=== PATIENT | female | born 1975 | race Caucasian/White ===

== ENCOUNTER → 2023-07-16 13:45 | Outpatient (REF) | payer OTHER, SELFPAY | LOC: WDC 13:45 | PROVIDERS: ATTENDING PHYSICIAN Obstetrics & Gynecology Gynecology; FAMILY PHYSICIAN Physician Assistant Medical | DX: R92.2 Inconclusive mammogram (principal) | CPT/HCPCS: 76641 ==

== ENCOUNTER → 2023-10-07 12:37 | Outpatient (REF) | payer OTHER, SELFPAY | LOC: WDC 12:37 | PROVIDERS: ATTENDING PHYSICIAN Obstetrics & Gynecology Gynecology; FAMILY PHYSICIAN Physician Assistant Medical | DX: Z12.31 Encounter for screening mammogram for malignant neoplasm of breast (principal) | CPT/HCPCS: 77063; 77067 ==

== ENCOUNTER → 2024-01-10 13:57 | Outpatient (REF) | payer OTHER, SELFPAY | LOC: WDC 13:57 | PROVIDERS: ATTENDING PHYSICIAN Obstetrics & Gynecology Gynecology | DX: R92.8 Other abnormal and inconclusive findings on diagnostic imaging of breast (principal) | CPT/HCPCS: 76642 ==

== ENCOUNTER → 2024-07-10 09:55 | Outpatient (REF) | payer OTHER, SELFPAY | LOC: WDC 09:55 | PROVIDERS: ATTENDING PHYSICIAN Obstetrics & Gynecology Gynecology; FAMILY PHYSICIAN Nurse Practitioner Family | DX: R92.2 Inconclusive mammogram (principal) | CPT/HCPCS: 76641 ==

== ENCOUNTER → 2024-10-07 12:22 | Outpatient (REF) | payer OTHER, SELFPAY | LOC: WDC 12:22 | PROVIDERS: ATTENDING PHYSICIAN Obstetrics & Gynecology Gynecology; FAMILY PHYSICIAN Nurse Practitioner Family | DX: Z12.31 Encounter for screening mammogram for malignant neoplasm of breast (principal) | CPT/HCPCS: 77063; 77067 ==

== ENCOUNTER → 2024-10-22 13:14 | Outpatient (REF) | payer OTHER, SELFPAY | LOC: RAD 13:14 | PROVIDERS: ATTENDING PHYSICIAN Nurse Practitioner Family; FAMILY PHYSICIAN Physician Assistant Medical | DX: R10.31 Right lower quadrant pain (principal) | CPT/HCPCS: 76830; 76856; 76882 ==

== ENCOUNTER → 2025-02-17 19:13 | Outpatient (REF) | payer OTHER, SELFPAY | LOC: MRI 19:13 | PROVIDERS: ATTENDING PHYSICIAN Podiatrist Foot & Ankle Surgery; FAMILY PHYSICIAN Nurse Practitioner Family | DX: M67.40 Ganglion, unspecified site (principal) | CPT/HCPCS: 73720; A9575 ==